=== PATIENT | male | born 1975 | race Hispanic/Latino ===

== ENCOUNTER 2021-07-22 22:13 | Emergency (ER) | payer SELFPAY ==
[~2021-07-22] VITALS: Ht 165.1 cm; Wt 104.5 kg
[2021-07-22 22:22] VITALS: BP 143/84
[2021-07-22 22:30] VITALS: BP 121/73
[2021-07-22 22:53] LABS: HEMATOCRIT 39.4 % (39.0-50.0); HEMOGLOBIN 13.2 g/dl (14.0-18.0); MEAN CELL VOLUME 87.9 fL CALC (80.0-100.0); MEAN CORPUSCULAR HGB 29.5 pG CALC (26.0-32.0); MEAN CORPUSCULAR HGB CONC 33.5 g/dL CAL (32.0-36.0); NEUT# 1.86 thou/uL (1.82-7.42); RED BLOOD COUNT 4.48 mill/uL (4.70-6.10); RED CELL DISTRI WIDTH 13.1 % (11.5-15.5)
[2021-07-22 23:00] VITALS: BP 129/80
[2021-07-22 23:11] LABS: ALBUMIN 4.5 g/dL (3.2-5.0); ALKALINE PHOSPHATASE 90 u/l (38-126); AMYLASE 95 u/l (30-110); BILIRUBIN, TOTAL 0.3 mg/dL (0.0-1.4); BUN 15 mg/dL (9-20); BUN/CREATININE RATIO 9 (12-20 (CALC)); CARBON DIOXIDE 17 mmol/l (22-30); CHLORIDE 107 mmol/l (95-108); CREATININE 1.7 mg/dL (0.7-1.3); ETHYL ALCOHOL 188 mg/dl (0-30); GFR 43 ML/MIN (>=60 (CALC)); GFR FOR AFR.AMER. 53 ML/MIN (>=60 (CALC)); LIPASE 265 u/l (23-300); SGOT/AST 29 u/l (17-59); SODIUM 141 mmol/l (137-146); TOTAL PROTEIN 7.8 g/dL (6.3-8.2)
[2021-07-22 23:13] LABS: ANION GAP 20 (6-22 (CALC)); POTASSIUM 3.4 mmol/l (3.5-5.1)
[2021-07-22 23:23] LABS: MYOGLOBIN 26 ng/mL (0 - 121)
[2021-07-22 23:30] VITALS: BP 99/52
[2021-07-23 01:59] LABS: URINE BILIRUBIN - DIPSTICK NEGATIVE (NEGATIVE); URINE BLOOD DIPSTICK TRACE-LYSED (NEGATIVE); URINE COLOR YELLOW; URINE GLUCOSE - DIPSTICK NEGATIVE (NEGATIVE); URINE KETONE 15 mg/dL (NEGATIVE); URINE LEUK ESTERASE NEGATIVE (NEGATIVE); URINE PROTEIN - DIPSTICK NEGATIVE (NEG-TRACE); URINE SPECIFIC GRAVITY >=1.030; URINE UROBILINOGEN - DIPSTICK 0.2 E.U./dL (0.2)
[2021-07-23 02:00] LABS: URINE NITRITE - DIPSTICK NEGATIVE (Negative)
[2021-07-23 02:38] VITALS: BP 99/52
== END 2021-07-23 02:48 | disposition home or self-care (01) | DRG 313 ==
LOC: ED 22:13 → EDBD 22:13 → ED 23:07
PROVIDERS: Emergency Medicine
DX: R07.89 Other chest pain (principal); F10.10 Alcohol abuse, uncomplicated